=== PATIENT | female | born 1940 | race Caucasian/White ===

== ENCOUNTER 2017-10-11 12:57 | Outpatient (CLI) | payer OTHER ==
--- NOTE | 2017-10-11 15:02 | CT ---
EXAM: CT Sinuses without contrast. HISTORY: Sinusitis. COMPARISON: None available. TECHNIQUE: Multiple axial images of the sinuses were obtained without intravenous contrast. Images were reformatted in the sagittal and coronal planes. FINDINGS: Maxillary sinuses: Minimal inferior mucosal thickening bilaterally. Ostiomeatal units are patent. Ethmoid sinuses: Clear. Sphenoid sinuses: Clear. Frontal sinuses: Clear. Nasal cavity: Mild rightward deviation of the nasal septum. Inferior nasal turbinate hypertrophy rené aterally. Mastoid air cells are clear. No fracture identified. No localized soft tissue abnormality identifie d. IMPRESSION: 1. Minimal maxillary sinus mucosal disease. 2. Inferior nasal turbinate hypertrophy. 3. Mild rightward deviation of the nasal septum.
== END 2017-10-11 12:58 | disposition home or self-care (01) ==
LOC: RAD 12:57
PROVIDERS: ATTEND Family Medicine
DX: J32.9 Chronic sinusitis, unspecified (principal)